=== PATIENT | male | born 1940 | race Caucasian/White ===

== ENCOUNTER 2021-06-08 13:21 | Observation (INO) | payer MEDICARE, SELFPAY ==
--- NOTE | 2021-06-05 13:32 | EKG12_ITS ---
Test Reason : PRE OP Blood Pressure : / mmHG Vent. Rate : 067 BPM Atrial Rate : 067 BPM P-R Int : 166 ms QRS Dur : 110 ms QT Int : 424 ms P-R-T Axes : 071 240 025 degrees QTc Int : 448 ms Normal sinus rhythm Low voltage QRS Right bundle branch block Abnormal ECG Confirmed by STAN VELEZ, OCTAVIANO ([id number]), editor publications DAVIAN SONI ([id number]) on 06/06/2021 11:41:50 AM Referred By: MAXX Confirmed By:OCTAVIANO PIERCE MD
[2021-06-05 14:22] LABS: Hematocrit 43.3 % (40-54); Hemoglobin 14.4 g/dL (13.0-16.5); Mean Corp Hgb Conc 33.3 g/dL (32-36); Mean Corpuscular Hgb 34.6 pg (27.0-32.0); Mean Corpuscular Volume 104.1 fL (80-94); Platelet Count 214 K/mm3 (150-450); RBC Distribution Width CV 13.2 % (11.6-14.6); RBC Distribution Width SD 51.1 fl (35.1-43.9); Red Blood Count 4.16 M/mm3 (4.6-6.2); White Blood Count 10.9 K/mm3 (4.4-11.0)
[2021-06-05 14:56] LABS: Anion Gap 5 (5-15); BUN 15 mg/dL (7-18); BUN/Creat Ratio 13.9 RATIO (10-20); Calcium,Total 8.4 mg/dL (8.5-10.1); Chloride 110 mmol/L (98-107); Creatinine, Serum 1.08 mg/dL (0.70-1.30); EST Glomerular Filtration Rate 70 mL/min (>60); Est Glom Filt Rate - Afr Amer 85 mL/min (>60); Glucose 105 mg/dL (74-106); Potassium 4.9 mmol/L (3.5-5.1); Sodium Level 143 mmol/L (136-145)
[2021-06-08] VITALS (15 sets, daily range): BP systolic 103–149; BP diastolic 57–105; PULSE 66–82; RESP 16–20; TEMP 36.1–37; O2SAT 92–98; BMI 18.1; BMI 18.2
--- NOTE | 2021-06-08 | PROS_PTH ---
PATIENT: LEONEL RIOS LOC: [facility] U#:[id number] AGE/SX: 80/M ROOM: WA310 RE06/08/[address]: Dr. Livan Oliva MD : 1940 BED: 1 DIS: 06/09/2021 SPEC #: [id number] RECD: 06/08/21 13:10 STATUS: LU PABLO #: [id number] SASCHA: 06/08/21 00:[address]: Livan Oliva DEPT: SURGICAL PATHOLOGY RECD BY: Ashwin Vizcaino ENTERED: 06/08/21 13:10 SP TYPE: TURP OTHR DR: Dr. Ted Martinez MD Tissues: Prostate, NOS Procedures: Surgery Specimen Level IV HEADER OPERATION: Cysto, TUR prostate, [employer] PRE-OP DIAGNOSIS: Urinary retention TISSUE SUBMITTED: Prostate tissue MICROSCOPIC DIAGNOSIS Prostate tissue, transurethral resection: Benign prostatic hyperplasia, glandular and stromal type. Focal chronic inflammation and minimal acute inflammation.. ALEX:arnol 06/11/2021 MICROSCOPIC DESCRIPTION Slides are reviewed. GROSS DESCRIPTION Received is one container labeled with the patient's name and designated prostate tissue. The specimen consists of multiple irregular fragments of pink-malone, rubbery, soft tissue that in aggregate weigh 15.8 gm and measure in aggregate 6 x 5 x 2.5 cm. Mechanical Drafter tissue is submitted in ten cassettes. / ALEX:arnol 06/08/2021 TC:5 CPT: 24613
[2021-06-08] MEDS: Lactated Ringers 1,000 ML 15 ML IV (10:06)
--- NOTE | 2021-06-08 10:37 | PCM.HP.STD ---
HPI - General HPI Narrative LEONEL RIOS, is a 80 M who presents for TURP for retention of urine PFSH Medical History (Updated 06/04/21 @ 12:10 by Li Aguilar) Bruising Cancer COPD (chronic obstructive pulmonary disease) DVT (deep venous thrombosis) Easy bruising Former smoker Gastric reflux History of atrial fibrillation History of cardioversion History of echocardiogram History of renal disease History of steroid therapy Prostate disease Pulmonary embolism Wears glasses Home Medications Breo Ellipta 1 inh INHALATION DAILY 06/01/21 [History Last Taken Unknown] metoprolol tartrate 50 mg PO BID 06/01/21 [History Last Taken 06/08/21] pantoprazole 40 mg PO DAILY 06/01/21 [History Last Taken 06/08/21] tamsulosin 0.4 mg PO DAILY 06/01/21 [History Last Taken Unknown] albuterol sulfate 2 puff INHALATION Q6H PRN 06/04/21 [History Last Taken Unknown] fluticasone propionate 1 spray INTRANASAL BID 06/04/21 [History Last Taken Unknown] ciprofloxacin HCl [Cipro] 500 mg PO BID #10 tab 06/08/21 [Rx Last Taken Unknown] Allergy/AdvReac Type Severity Reaction Status Date / Time No Known Allergies Allergy Verified 06/01/21 10:59 Surgical History (Updated 06/04/21 @ 12:10 by Li Aguilar) History of aortic aneurysm repair History of appendectomy History of cholecystectomy History of esophagogastroduodenoscopy (EGD) History of melanoma excision History of surgery Social History Smoking Status: Former smoker Vital Signs Vital Signs Vital Signs: 06/08/21 09:56 06/08/21 10:00 Temperature 97.3 F L Temperature Source Temporal Pulse Rate 80 Respiratory Rate 16 Respiratory Pattern Normal Blood Pressure 103/73 Blood Pressure Mean 83 Blood Pressure Source Monitor Blood Pressure Position Sitting Blood Pressure Location Left Arm Pulse Ox 98 Oxygen Delivery Method Room Air Weight Weight: 66 kg Body Mass Index (BMI) 18.1 Results Lab / Micro Data Result Diagrams: 06/05/21 13:44 06/05/21 13:44 Micro: Microbiology 06/08/21 08:55 Nasal Secretion SARS-CoV-2 Antigen (Rapid) - Final
--- NOTE | 2021-06-08 10:37 | PCM.DC ---
Discharge Instructions Diet Discharge Diet: No restrictions Activity Discharge Activity: Return to Normal Activity and May Not Drive (while taking narcotic pain medications.) Dressing / Incision Call your doctor if you observe: Fever of 101 or Higher Follow Up Care Please Follow Up With: Livan Oliva MD When: Call [phone] for an appointment Test Results: Test results from this visit will be discussed in further detail at your follow-up appointment, if applicable. Discharge Plan Admission Primary Reason for Your Visit: JERSON Attending Provider: Livan Oliva Primary Care Provider: Ted Martinez Instructions Patient Instructions: [facility] Home Recovery Discharge Orders/Prescriptions Prescriptions: New ciprofloxacin HCl [Cipro] 500 mg tablet 500 mg PO BID Qty: 10 RF: 0 Continued tamsulosin 0.4 mg Capsule 0.4 mg PO DAILY RF: 0 pantoprazole 40 mg Tablet,Delayed Release (Dr/Ec) 40 mg PO DAILY RF: 0 metoprolol tartrate 50 mg Tablet 50 mg PO BID RF: 0 Breo Ellipta 100-25 mcg/dose Blister With Device 1 inh INHALATION DAILY RF: 0 albuterol sulfate 90 mcg/actuation Hfa Aerosol Inhaler 2 puff INHALATION Q6H PRN (Reason: Wheezing) RF: 0 fluticasone propionate 50 mcg/actuation [place],Suspension 1 spray INTRANASAL BID RF: 0 Discontinued Eliquis 5 mg Tablet 5 mg PO BID RF: 0 Other Ambulatory Orders: 12 Lead EKG (Routine) Timeframe: [id number] Location: None Selected Ordered By: Dr. Reynold Younger Referrals / Follow Up: Ted Martinez MD [Primary Care Provider] - Livan Oliva MD [STAFF PHYSICIAN] - Disposition Disposition (needs filled in before D/C Order can be placed): Home, Self Care
[2021-06-08] MEDS: Cefazolin 2 GM in 0.9% Normal Saline 100 ML IV (10:45)
--- NOTE | 2021-06-08 11:55 | OP.PCM_ITS ---
Report of Operation Date of Procedure: 06/08/21 Pre-Operative Diagnosis: bph with obstruction Post-Operative Diagnosis: same Surgery/Procedure Performed:: Turp Description of Surgical Findings:: In the preoperative setting I discussed with the patient how the surgery would be done with expect afterwards. We discussed how a prostate resection is done and we discussed the risk of the surgery including, bleeding, infection, retrograde ejaculation, changes with ejaculation or intercourse,. We discussed the possibility that the resection of the prostate may not alleviate his urinary symptoms. We discussed the small risk of developing scar tissue along the urethral channel and strictures. We also discussed the chance of the prostate could grow back and he may need further surgery or treatment in the future for prostate problems. Patient was taken back to the operating room, timeout procedure was performed, he was identified and marked and placed on the operating room table. He underwent general anesthesia. He was placed in dorsolithotomy position. Penis and testicles were prepped and draped in usual sterile fashion. Went into the bladder using the visual obturator with a resectoscope. Once inside the bladder identified the right and left ureteral orifice. I then identified the prostate and the anatomy of the prostate. I marked out the area of the sphincter and the verumontanum was identified. I then proceeded with the prostate resection first resected the median lobe. And then resected the right lobe of the prostate. Then to resect the left lobe of the prostate. I then resected the apical tissue of the prostate. This was a complete resection of all obstructive tissue to improve voiding and relieve obstruction. I then made sure that there was no injury to the sphincter or the verumontanum was still intact. At the end of the resection all the chips were Ellik out of the bladder. I then identified the left and right ureteral orifice and these were confirmed to be in good position and effluxing and not injured. The resectoscope was removed, a 22 Romansh catheter was placed into the bladder on continuous irrigation. And the urine was fairly light pink color and draining normally. He was taken back to the PACU in good condition. CPT 75307 Surgeon: Livan Oliva Type of Anesthesia: General Admit VTE Documentation VTE Present on Admission: No VTE Mechan Device Prophylaxis: SCD's VTE Pharm Prophylaxis ordered?: No
[2021-06-08] MEDS: 0.9% Normal Saline 1,000 ML 125 ML IV ×2 (15:36→21:26)
[2021-06-08] MEDS: 0.9% Saline Lock 10 ML Syringe IV (15:56)
[2021-06-08] MEDS: Ibuprofen 600 MG Tablet PO (18:03)
[2021-06-08] MEDS: Metoprolol Tartrate 50 MG Tablet PO (21:26)
[2021-06-08] MEDS: Ciprofloxacin 400 MG/200 ML BAG 200 MG IV (21:26)
[2021-06-08] MEDS: Fluticasone/Salmeterol 232-14 Inhaler 1 PUFF INHALATION (21:27)
[2021-06-08] MEDS: Fluticasone 0.05% 1 SPRAY NASAL.SRY NASAL (21:27)
[2021-06-09] VITALS (7 sets, daily range): BP systolic 99–115; BP diastolic 54–76; PULSE 54–66; RESP 16–18; TEMP 36.4–36.7; O2SAT 94–100; BMI 18.2
[2021-06-09] MEDS: Ibuprofen 600 MG Tablet PO ×3 (00:58→12:14)
[2021-06-09] MEDS: 0.9% Normal Saline 1,000 ML 125 ML IV (05:50)
--- NOTE | 2021-06-09 07:50 | PCM.PN.GU ---
Subjective Subjective doing well after turp no bleeding, no issues d/c [facility]gar[facility], home after is able to void. Objective Data Objective Data Vital Signs: Vital Signs Temp Pulse Resp BP Pulse Ox 98.1 F 59 L 18 99/59 L 94 06/09/21 05:49 06/09/21 05:49 06/09/21 05:49 06/09/21 05:49 06/09/21 05:49 Oxygen Flow Rate (L/min) 2 Oxygen Delivery Method Room Air Weight: 66 kg Body Mass Index (BMI) 18.1 Intake & Output: Intake and Output for Last 24 Hours 06/07/21 06/08/21 06/09/21 23:59 23:59 23:59 Intake Total 1887.17 / 1887.17 1000 / 1000 Output Total 5575 / 5575 3200 / 3200 Balance -3687.83 / -3687.83 -2200 / -2200 Lab / Micro Data Result Diagrams: 06/05/21 13:44 06/05/21 13:44 Micro: Microbiology 06/08/21 08:55 Nasal Secretion SARS-CoV-2 Antigen (Rapid) - Final
[2021-06-09] MEDS: Ciprofloxacin 400 MG/200 ML BAG 200 MG IV (12:13)
[2021-06-09] MEDS: Metoprolol Tartrate 50 MG Tablet PO (12:14)
[2021-06-09] MEDS: Fluticasone/Salmeterol 232-14 Inhaler 1 PUFF INHALATION (12:14)
[2021-06-09] MEDS: Fluticasone 0.05% 1 SPRAY NASAL.SRY NASAL (12:14)
[2021-06-09] MEDS: Pantoprazole Sodium 40 MG Tablet PO (12:15)
[2021-06-09] MEDS: Tamsulosin HCl 0.4 MG Capsule PO (12:15)
== END 2021-06-09 14:49 | disposition home or self-care (01) ==
LOC: SDC 13:42 → MS3 13:42
PROVIDERS: Anesthesiology; Admitting Provider Urology; PCP Family Medicine; Referring Provider Family Medicine; Visit Provider Urology
PROC: (CPT 52601; principal; 2021-06-08 10:15)
DX: R33.9 Retention of urine, unspecified (principal); J44.9 Chronic obstructive pulmonary disease, unspecified; I48.91 Unspecified atrial fibrillation; Z87.891 Personal history of nicotine dependence; Z86.718 Personal history of other venous thrombosis and embolism; K21.9 Gastro-esophageal reflux disease without esophagitis; Z86.711 Personal history of pulmonary embolism; Z79.899 Other long term (current) drug therapy; N40.1 Benign prostatic hyperplasia with lower urinary tract symptoms; N13.8 Other obstructive and reflux uropathy
CPT/HCPCS: 52601; 00914; 36415; 80048; 85027; 87426; 88305; 93005; 96361; 96365; 96366; 99218; J7030; J7120; A4216; G0378; J0744; J2405